=== PATIENT | female | born 2000 | race Caucasian/White ===

== ENCOUNTER 2019-12-22 22:36 | Emergency (ER) | payer SELFPAY ==
[~2019-12-22] VITALS: Ht 160 cm; Wt 63.5 kg
--- NOTE | 2019-12-22 22:40 | NUR ---
PT AAOX4. AMBULATORY WITH STEADY GAIT. C/O HEADACHE AND VOMITING X2 HOURS. VSS. PLACED ON MONITOR AND PULSE OX. MD AT BEDSIDE FOR EVAL. AWAITING ORDERS.
[2019-12-22] MEDS ORDERED: METOCLOPRAMIDE HCL 10 MG/2 ML VIAL ONE (22:43)
[2019-12-22] MEDS ORDERED: ONDANSETRON HCL/PF 4 MG/2 ML VIAL ONE (22:43)
[2019-12-22] MEDS ORDERED: diphenhydrAMINE HCL 50 MG/ML VIAL ONE (22:43)
--- NOTE | 2019-12-22 22:57 | NUR ---
Patient is resting comfortably in bed. Easily aroused. VSS
[2019-12-22] MEDS ORDERED: METOCLOPRAMIDE HCL 10 MG/2 ML VIAL IV ONE (23:00)
[2019-12-22] MEDS ORDERED: IV NS 0.9% 1,000 ML BAG IV ONE (23:00)
[2019-12-22] MEDS ORDERED: ONDANSETRON HCL/PF 4 MG/2 ML VIAL IV ONE (23:00)
[2019-12-22] MEDS ORDERED: diphenhydrAMINE HCL 50 MG/ML VIAL IV ONE (23:00)
--- NOTE | 2019-12-22 23:21 | NUR ---
Patient discharged to home in stable condition. Written and verbal after care instructions given. Patient verbalizes understanding of instruction. IV removed. Catheter intact and site benign. Pressure and 4x4 applied to site. No bleeding noted. Pt ambulated with steady gait. vss.
[2019-12-22 23:22] VITALS: BP 121/73
== END 2019-12-22 23:23 | disposition home or self-care (01) ==
LOC: ER 22:36
DX: G43.909 Migraine, unspecified, not intractable, without status migrainosus (principal); R11.0 Nausea
CPT/HCPCS: 96375; 96374; 99284; A4216; J1200; J2405; J2765; J7030